=== PATIENT | female | born 1985 | race Caucasian/White ===

== ENCOUNTER → 2017-03-08 | Outpatient (CLI) | payer BC ==
[~2017-03-08] MED LIST: BUTALB-APAP-CA1 EACH PO; DILAUDID2 MG PO; IBUPROFEN800 MG PO; INDOCIN25 MG PO; LABETALOL HCL200 MG PO; METHIMAZOLE10 MG PO; PRENATAL VITAM1 EAC2 PO; TUMS500 MG PO
== END | disposition home or self-care (01) ==
LOC: CDC 12:11
DX: Z01.810 Encounter for preprocedural cardiovascular examination (principal); D17.1 Benign lipomatous neoplasm of skin and subcutaneous tissue of trunk
CPT/HCPCS: 93000

== ENCOUNTER 2017-03-20 09:20 | Day surgery (SDC) | payer BC ==
[~2017-03-20] VITALS: Ht 160 cm; Wt 63.5 kg
[~2017-03-20 09:20] MED LIST changes: +MAGNESIUM PO; +MOTRIN600 MG PO
[2017-03-20 09:48] VITALS: BP 128/80
[2017-03-20] MEDS ORDERED: NORCO 5/3251 TABLET PO (12:25)
[2017-03-20 12:45] VITALS: BP 120/73
[2017-03-20 13:45] VITALS: BP 111/65
== END 2017-03-20 13:52 | disposition home or self-care (01) ==
LOC: SDC
PROC: 0JB70ZZ Excision of Back Subcutaneous Tissue and Fascia, Open Approach (ICD-10-PCS; principal; 2017-03-20)
DX: D17.1 Benign lipomatous neoplasm of skin and subcutaneous tissue of trunk (principal); F41.9 Anxiety disorder, unspecified; F41.0 Panic disorder [episodic paroxysmal anxiety]; K21.9 Gastro-esophageal reflux disease without esophagitis; Z80.0 Family history of malignant neoplasm of digestive organs; Z83.3 Family history of diabetes mellitus; Z84.1 Family history of disorders of kidney and ureter; Z82.5 Family history of asthma and other chronic lower respiratory diseases; Z82.49 Family history of ischemic heart disease and other diseases of the circulatory system
CPT/HCPCS: 88304; J0690; J1885; J3010